=== PATIENT | female | born 1980 | race Caucasian/White ===

== ENCOUNTER 2021-01-17 15:18 | Emergency (ER) | payer BC, MEDICAID ==
[~2021-01-17] VITALS: Ht 167.6 cm; Wt 99.8 kg
[2021-01-17 15:18] VITALS: BP 101/53
--- NOTE | 2021-01-17 15:18 | NUR ---
Pt EMMANUEL via gurney to bed 11.
--- NOTE | 2021-01-17 15:47 | NUR ---
40 Y/O F BIBA, PATIENT PRESENTS TO ED WITH 1 SYNCOPE EPISODE AND ONE NEAR SYNCOPAL EPISODE. PT STATES SHE HAS NOT EATEN OR DRANK ANYTHING AT ALL TODAY, STARTED TO FEEL WEAK, +HEAD INJURY, FALL, LOC. DENIES N/V/D; SKIN IS PINK/WARM/DRY; AAOX4 AMBULATES WITH ASSIST; LUNGS CLEAR BL; HR EVEN AND REGULAR; PT DENIES ANY FEVER, CP, SOB, OR COUGH AT THIS TIME; PATIENT STATES PAIN OF 2/10 AT THIS TIME, POSTERIOR HEAD; VSS; PATIENT POSITIONED FOR COMFORT; HOB ELEVATED; BEDRAILS UP X2; BED DOWN. ER MD MADE AWARE OF PT STATUS. PMH: HTN MED: DENIES NKA
[2021-01-17] MEDS ORDERED: NACL 0.9% 1,000 ML IV ONE (17:00)
[2021-01-17 17:09] LABS: BASOPHILS % (AUTO) 0.4 % (0.0-2.0); EOSINOPHILS # (AUTO) 0.1 K/uL (0-0.4); EOSINOPHILS % (AUTO) 0.8 % (0.0-4.0); HEMATOCRIT 39.2 % (36-48); HEMOGLOBIN 12.9 g/dL (12.0-16.0); LYMPHOCYTES # (AUTO) 1.5 K/uL (2.5-16.5); LYMPHOCYTES % (AUTO) 16.6 % (20.5-51.1); MEAN CORPUSCULAR HEMOGLOBIN 27 pg (27-31); MEAN CORPUSCULAR HGB CONC 33 g/dL (33-37); MEAN CORPUSCULAR VOLUME 81.1 fL (80-94); MONOCYTES # (AUTO) 0.5 K/uL (0.8-1.0); MONOCYTES % (AUTO) 5.2 % (1.7-9.3); NEUTROPHILS # (AUTO) 7.1 K/uL (1.8-7.7); PLATELET COUNT (AUTO) 285 K/uL (140-450); RED BLOOD CELL COUNT(AUTO) 4.83 MIL/uL (4.20-5.40); RED CELL DISTRIBUTION WIDTH 15.7 % (11.6-13.7); WHITE BLOOD COUNT (AUTO) 9.2 K/uL (4.8-10.8)
[2021-01-17 17:49] LABS: ALBUMIN 3.3 g/dL (3.4-5.0); ANION GAP 10.7 (8-16); CARBON DIOXIDE 28.1 mmol/L (21-32); CREATININE 0.8 mg/dL (0.6-1.3); POTASSIUM 4.8 mmol/L (3.5-5.1); TOTAL BILIRUBIN 0.2 mg/dL (0.0-1.0)
--- NOTE | 2021-01-17 18:30 | NUR ---
IV removed, catheter intact and site benign. Applied folded 4x4 gauze and tape to stop bleeding.
[2021-01-17 18:39] VITALS: BP 102/50
--- NOTE | 2021-01-17 18:39 | NUR ---
Patient discharged with v/s stable. Written and verbal after care instructions given and explained. Patient verbalized understanding. Ambulatory with steady gait. All questions addressed prior to discharge. Advised to follow up with PMD.
== END 2021-01-17 18:39 | disposition home or self-care (01) ==
LOC: MED 15:18
DX: R55 Syncope and collapse (principal); I10 Essential (primary) hypertension
CPT/HCPCS: 36415; 80053; 84703; 85025; 93005; 96360; 99284; J7030

== ENCOUNTER 2022-10-05 15:31 | Emergency (ER) | payer BC, MEDICAID ==
[~2022-10-05] VITALS: Ht 167.6 cm; Wt 99.8 kg
[2022-10-05 15:37] VITALS: BP 161/75
--- NOTE | 2022-10-05 15:42 | NUR ---
PATIENT INJURED LEFT WRIST 5 MONTHS AGO, WAS SEEN AT [facility] AND WAS DIAGNOSED WITH A SPRAIN. HERE TODAY, BECAUSE OF LINGERING PAIN (01/21) AND NOTICED A BUMP ON THE AFFECTED AREA. PMH: DENIES
[2022-10-05] MEDS ORDERED: NAPR-1704 PO (16:36)
--- NOTE | 2022-10-05 17:46 | NUR ---
AMB. TO CHAIR A, NO DIFFICULTY, NO DISTRESS
--- NOTE | 2022-10-05 19:04 | NUR ---
VOLAR SPLINT APPLIED TO L WRIST. + CMS
--- NOTE | 2022-10-05 19:10 | NUR ---
Patient discharged with v/s stable. Written and verbal after care instructions given. Patient alert, oriented and verbalized understanding of instructions. Ambulatory with steady gait. All questions addressed prior to discharge. ID band removed. Patient advised to follow up with PMD. Rx of Naproxen given. Opportunity to ask questions provided and answered. WORK NOTE HANDED TO PATIENT.
== END 2022-10-05 19:10 | disposition home or self-care (01) ==
LOC: MED 15:31
DX: G89.29 Other chronic pain (principal); M25.532 Pain in left wrist; I10 Essential (primary) hypertension; Z79.1 Long term (current) use of non-steroidal anti-inflammatories (NSAID)
CPT/HCPCS: 73110; 99283

== ENCOUNTER 2023-10-17 22:11 | Emergency (ER) | payer MEDICAID ==
[~2023-10-17] VITALS: Ht 165.1 cm; Wt 90.7 kg
[~2023-10-17 22:11] MED LIST: NAPR-1704 PO
[2023-10-17 22:36] VITALS: BP 109/68; PULSE 108; RESP 18; TEMP 98.2; O2SAT 98
[2023-10-17] MEDS ORDERED: AMOX1TAB8 PO (23:37)
[2023-10-17] MEDS ORDERED: NAPR-337 PO (23:37)
[2023-10-17 23:45] VITALS: BP 109/68; PULSE 108; RESP 18; TEMP 98.2; O2SAT 98
== END 2023-10-17 23:45 | disposition home or self-care (01) ==
LOC: MED 22:11
DX: J02.9 Acute pharyngitis, unspecified (principal); R05.9 Cough, unspecified; Z79.899 Other long term (current) drug therapy
CPT/HCPCS: 99283

== ENCOUNTER 2024-01-17 11:36 | Emergency (ER) | payer MEDICAID ==
[~2024-01-17] VITALS: Ht 167.6 cm; Wt 114.9 kg
[~2024-01-17 11:36] MED LIST changes: +AMOX1TAB8 PO; +NAPR-337 PO
[2024-01-17 11:52] VITALS: BP 141/93; PULSE 97; RESP 18; TEMP 97.6; O2SAT 100
[2024-01-17 12:09] VITALS: BP 141/93; PULSE 97; RESP 18; TEMP 97.6
[2024-01-17 13:00] VITALS: O2SAT 100
[2024-01-17] MEDS: NACL 0.9% 1,000 ML IV ONE (13:40)
[2024-01-17 13:43] LABS: BASOPHILS # (AUTO) 0.3 K/uL (0.00-0.22); BASOPHILS % (AUTO) 2.6 % (0.0-2.0); EOSINOPHILS % (AUTO) 0.4 % (0.0-4.0); HEMATOCRIT 37.3 % (36-48); HEMOGLOBIN 12.3 g/dL (12.0-16.0); LYMPHOCYTES # (AUTO) 1.8 K/uL (2.5-16.5); LYMPHOCYTES % (AUTO) 18.6 % (20.5-51.1); MEAN CORPUSCULAR HEMOGLOBIN 27 pg (27-31); MEAN CORPUSCULAR HGB CONC 33 g/dL (33-37); MEAN CORPUSCULAR VOLUME 80.3 fL (80-94); MONOCYTES # (AUTO) 0.8 K/uL (0.8-1.0); MONOCYTES % (AUTO) 7.8 % (1.7-9.3); NEUTROPHILS # (AUTO) 6.9 K/uL (1.8-7.7); NEUTROPHILS % (AUTO) 70.6 % (42.2-75.2); PLATELET COUNT (AUTO) 246 K/uL (140-450); RED BLOOD CELL COUNT(AUTO) 4.65 MIL/uL (4.20-5.40); RED CELL DISTRIBUTION WIDTH 15.2 % (11.6-13.7); WHITE BLOOD COUNT (AUTO) 9.8 K/uL (4.8-10.8)
[2024-01-17 13:51] LABS: APPEARANCE,URINE CLEAR (CLEAR); BILIRUBIN,URINE NEGATIVE (NEGATIVE); BLOOD, URINE NEGATIVE (NEGATIVE); COLOR,URINE YELLOW (YELLOW); LEUKOCYTE ESTERASE ,URINE 1+ (NEGATIVE); NITRITE, URINE NEGATIVE (NEGATIVE); PROTEIN,URINE NEGATIVE (NEGATIVE); UGLUCOSE NEGATIVE (NEGATIVE); UROBILINOGEN,URINE 0.2 EU/dL (0.2 - 1)
[2024-01-17 14:10] LABS: BACTERIA,URINE >30 (MANY) /HPF (None Seen); MUCUS,URINE 1+ /LPF (None Seen); RBC,URINE 0-5 /HPF (0-5); SQUAMOUS EPITHELIAL CELL,UR 4-10 (MOD) /LPF (0-3 (FEW))
[2024-01-17] MEDS ORDERED: NITR100C7 PO (14:23)
[2024-01-17 14:24] LABS: ANION GAP 12.6 (8-16); CARBON DIOXIDE 26.2 mmol/L (21-32); CREATININE 0.5 mg/dL (0.6-1.3); POTASSIUM 3.8 mmol/L (3.5-5.1)
== END 2024-01-17 16:11 | disposition home or self-care (01) ==
LOC: MED 11:36
DX: O99.611 Diseases of the digestive system complicating pregnancy, first trimester (principal); R19.7 Diarrhea, unspecified; O23.41 Unspecified infection of urinary tract in pregnancy, first trimester; N39.0 Urinary tract infection, site not specified; O26.811 Pregnancy related exhaustion and fatigue, first trimester; R42 Dizziness and giddiness; O26.851 Spotting complicating pregnancy, first trimester; O13.1 Gestational [pregnancy-induced] hypertension without significant proteinuria, first trimester; O24.111 Pre-existing type 2 diabetes mellitus, in pregnancy, first trimester; O99.321 Drug use complicating pregnancy, first trimester; F12.90 Cannabis use, unspecified, uncomplicated; Z3A.09 9 weeks gestation of pregnancy; Z98.890 Other specified postprocedural states; Z79.899 Other long term (current) drug therapy
CPT/HCPCS: 36415; 76801; 80048; 81001; 84702; 85025; 86900; 86901; 87086; 96360; 99284; J7030; Q0092